=== PATIENT | female | born 1960 | race Caucasian/White ===

== ENCOUNTER 2017-03-16 11:02 | Observation (INO) | payer SELFPAY ==
[~2017-03-16] VITALS: Ht 170.2 cm; Wt 80.0 kg
[~2017-03-16 11:02] MED LIST: NORC7.5T PO; WALKER STANDARD
[2017-03-16 11:05] VITALS: BP 155/88; PULSE 79; RESP 15; TEMP 97.8; O2SAT 98
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
[2017-03-16] MEDS ORDERED: SODIUM CHLORIDE 0.9% FLUSH 10 ML FLUSH IVF PRN (13:30)
[2017-03-16 13:41] VITALS: RESP 18; O2SAT 99
[2017-03-16 13:54] VITALS: BP 153/69; PULSE 61; RESP 18; O2SAT 99
[2017-03-16 14:05] LABS: AUTOMATED NEUTROPHIL # 4.3 TH/MM3 (1.8-7.7); BASOPHIL % 0.5 % (0.0-2.0); EOSINOPHIL # 0.1 TH/MM3 (0-0.4); EOSINOPHIL % 1.1 % (0.0-4.0); HEMATOCRIT 38.5 % (35.0-46.0); HEMO FLAGS DIFF FINAL; LYMPH % 28.6 % (9.0-44.0); LYMPHOCYTE # 1.9 TH/MM3 (1.0-4.8); MEAN CELL VOLUME 78.8 FL (80.0-100.0); MEAN CORPUSCULAR HEMOGLOBIN 25.5 PG (27.0-34.0); MEAN CORPUSCULAR HGB CONC 32.3 % (32.0-36.0); MONO % 6.4 % (0.0-8.0); NEUT % 63.4 % (16.0-70.0); PLATELET COUNT 235 TH/MM3 (150-450); RED BLOOD COUNT 4.89 MIL/MM3 (4.00-5.30); RED CELL DISTRIBUTION WIDTH 14.2 % (11.6-17.2); WHITE BLOOD COUNT 6.7 TH/MM3 (4.0-11.0)
[2017-03-16 14:15] LABS: BICARBONATE 29.5 MEQ/L (21.0-32.0); POTASSIUM 3.7 MEQ/L (3.5-5.1)
--- NOTE | 2017-03-16 15:34 | RADRPT ---
EXAM DATE/TIME: 03/16/2017 15:09 [facility] COMPARISON: CT BRAIN W/O CONTRAST, May 05, 2016, 13:22. INDICATIONS : Cephalgia, aphasia, altered mental status. RADIATION DOSE: 33.51 CTDIvol (mGy) MEDICAL HISTORY : None SURGICAL HISTORY : Hysterectomy. ENCOUNTER: Initial ACUITY: >1 yr PAIN SCALE: 3/10 LOCATION: Bilateral frontal TECHNIQUE: Multiple contiguous axial images were obtained of the head. Using automated exposure control and adj ustment of the mA and/or kV according to patient size, radiation dose was kept as low as reasonably a chievable to obtain optimal diagnostic quality images. DICOM format image data is available electro nically for review and comparison. FINDINGS: There is no evidence for intracranial hemorrhage, mass effect, mass lesions, edema, or extra-axial fl uid collections. The visualized bony structures appear intact. The ventricles are normal size for t he patient's age. There are no signs of acute infarction for technique. CONCLUSION: Unremarkable study. Nidia Horton MD on March 16, 2017 at 15:31 Board Certified Radiologist. This report was verified electronically.
[2017-03-16] MEDS ORDERED: NALOXONE HCL 0.4 MG/ML AMP IV PRN (16:15)
[2017-03-16] MEDS ORDERED: SODIUM CHLORIDE 0.9% FLUSH 10 ML FLUSH IV FLUSH PRN (16:15)
[2017-03-16] MEDS ORDERED: HYDROmorphone HCL PF 1 MG/ML VIAL IV PUSH ONE (16:30)
[2017-03-16 16:51] VITALS: BP 127/60; PULSE 64; RESP 18; O2SAT 96
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
[2017-03-16] MEDS ORDERED: HYDROmorphone HCL 2 MG TAB PO PRN (17:30)
[2017-03-16] MEDS ORDERED: traMADol HCL 50 MG TAB PO PRN (17:30)
[2017-03-16] MEDS ORDERED: ONDANSETRON HCL 4 MG/2 ML VIAL IVP PRN (17:30)
[2017-03-16] MEDS: SODIUM CHLORIDE 0.9% FLUSH 10 ML FLUSH IV FLUSH SCH (21:00)
[2017-03-16 21:14] VITALS: BP 137/73; PULSE 72; RESP 18; TEMP 98.7; O2SAT 97
[2017-03-17 03:18] VITALS: BP_SYST 135; BP_SYST 152; BP_DIAS 68; BP_DIAS 70; PULSE 72; RESP 18; TEMP 98.6; O2SAT 98
[2017-03-17 06:27] LABS: AUTOMATED NEUTROPHIL # 3.9 TH/MM3 (1.8-7.7); BASOPHIL % 0.4 % (0.0-2.0); EOSINOPHIL # 0.1 TH/MM3 (0-0.4); EOSINOPHIL % 1.7 % (0.0-4.0); HEMATOCRIT 37.2 % (35.0-46.0); HEMO FLAGS DIFF FINAL; LYMPH % 35.5 % (9.0-44.0); LYMPHOCYTE # 2.6 TH/MM3 (1.0-4.8); MEAN CELL VOLUME 79.3 FL (80.0-100.0); MEAN CORPUSCULAR HEMOGLOBIN 25.1 PG (27.0-34.0); MEAN CORPUSCULAR HGB CONC 31.6 % (32.0-36.0); MONO % 7.8 % (0.0-8.0); NEUT % 54.6 % (16.0-70.0); PLATELET COUNT 257 TH/MM3 (150-450); RED BLOOD COUNT 4.69 MIL/MM3 (4.00-5.30); RED CELL DISTRIBUTION WIDTH 14.6 % (11.6-17.2); WHITE BLOOD COUNT 7.2 TH/MM3 (4.0-11.0)
[2017-03-17 06:53] LABS: ALT (GPT) 16 U/L (10-53); ANION GAP 9 MEQ/L (5-15); AST (GOT) 13 U/L (15-37); BICARBONATE 31.1 MEQ/L (21.0-32.0); BLOOD UREA NITROGEN 18 MG/DL (7-18); CHLORIDE 102 MEQ/L (98-107); GLOMERULAR FILTRATION RATE 75 ML/MIN (>89); POTASSIUM 3.7 MEQ/L (3.5-5.1); SODIUM (NA) 142 MEQ/L (136-145)
[2017-03-17 06:54] LABS: ALKALINE PHOSPHATASE 69 U/L (45-117); TOTAL BILIRUBIN ADULT 0.4 MG/DL (0.2-1.0)
[2017-03-17 08:51] VITALS: BP 135/79; PULSE 64; RESP 16; TEMP 98.2; O2SAT 98
[2017-03-17] MEDS ORDERED: LORazepam 2 MG/ML VIAL IV PUSH ONE (10:15)
[2017-03-17] MEDS: SODIUM CHLORIDE 0.9% FLUSH 10 ML FLUSH IV FLUSH SCH (10:40)
--- NOTE | 2017-03-17 12:31 | RADRPT ---
EXAM DATE/TIME: 03/17/2017 11:28 [facility] COMPARISON: No previous studies available for comparison. INDICATIONS : Cephalgia. CONTRAST: 16 cc Omniscan (gadodiamide) IV MEDICAL HISTORY : None. SURGICAL HISTORY : Hysterectomy. ENCOUNTER: Initial ACUITY: 2 day PAIN SCORE: 6/10 LOCATION: head TECHNIQUE: Multiplanar, multisequence MRI of the brain was performed both prior to and following the administrat ion of paramagnetic contrast. FINDINGS: CEREBRUM: The ventricles are normal for age. No evidence of midline shift, mass lesion, hemorrhage or acute in farction. No extraaxial fluid collections are seen. The pituitary gland and suprasellar cistern are normal in configuration. WHITE MATTER: No significant signal abnormalities are seen in the white matter. POSTERIOR FOSSA: The cerebellum and brainstem are intact. The 4th ventricle is midline. The cerebellopontine angle is unremarkable. The cerebellar tonsils are normal in position. DIFFUSION IMAGING: No focal areas of restricted diffusion are seen. No evidence of acute infarction. EXTRACRANIAL: The visualized portions of the orbits and paranasal sinuses are unremarkable. POST-CONTRAST: No abnormal areas of parenchymal or dural enhancement. No evidence of blood-brain barrier breakdown. CONCLUSION: Negative exam. Charles Layne MD on March 17, 2017 at 12:28 Board Certified Radiologist. This report was verified electronically.
[2017-03-17 13:22] VITALS: BP 119/61; PULSE 70; RESP 16; TEMP 98.2; O2SAT 100
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
[2017-03-17] MEDS ORDERED: ULTR50TA5 PO (13:30)
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
[2017-03-17] MEDS ORDERED: GADODIAMIDE PF 287 MG/ML 20 ML VIAL (for RAD MRI) IV PUSH ONE (15:54)
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
== END 2017-03-17 15:55 | disposition home or self-care (01) ==
LOC: NEPD 11:02 → NEDA 16:13 → NEPHCDU 18:32
PROVIDERS: ADMIT Family Medicine; ATTEND Family Medicine
DX: R47.01 Aphasia (principal); G50.0 Trigeminal neuralgia; R51 Headache; G47.00 Insomnia, unspecified; R41.3 Other amnesia; R42 Dizziness and giddiness; R41.82 Altered mental status, unspecified; S06.0X9S Concussion with loss of consciousness of unspecified duration, sequela; J45.909 Unspecified asthma, uncomplicated; F32.9 Major depressive disorder, single episode, unspecified; F43.20 Adjustment disorder, unspecified; H91.92 Unspecified hearing loss, left ear; Z87.820 Personal history of traumatic brain injury; Z98.51 Tubal ligation status; V89.2XXS Person injured in unspecified motor-vehicle accident, traffic, sequela
CPT/HCPCS: 70450; 70553; 80048; 80053; 85025; 92523; 96374; 96375; 99285; A9579; G0378; G9162; G9163; G9164; J1170; J2060

== ENCOUNTER 2017-09-13 17:50 | Emergency (ER) | payer SELFPAY ==
[~2017-09-13] VITALS: Ht 170.2 cm; Wt 85.7 kg
[~2017-09-13 17:50] MED LIST changes: -NORC7.5T PO; +TRAM50 PO; -WALKER STANDARD
[2017-09-13 17:52] VITALS: BP 134/63; PULSE 67; RESP 16; TEMP 98.7; O2SAT 96
[2017-09-13 18:40] VITALS: O2SAT 98
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
[2017-09-13 19:06] LABS: AUTOMATED NEUTROPHIL # 5.2 TH/MM3 (1.8-7.7); BASOPHIL # 0.1 TH/MM3 (0-0.2); BASOPHIL % 1.3 % (0.0-2.0); EOSINOPHIL # 0.1 TH/MM3 (0-0.4); EOSINOPHIL % 1.8 % (0.0-4.0); HEMOGLOBIN 12.4 GM/DL (11.6-15.3); LYMPH % 23.8 % (9.0-44.0); LYMPHOCYTE # 1.9 TH/MM3 (1.0-4.8); MEAN CELL VOLUME 77.2 FL (80.0-100.0); MEAN CORPUSCULAR HGB CONC 33.7 % (32.0-36.0); MEAN PLATELET VOLUME 10.1 FL (7.0-11.0); MONOCYTE # 0.5 TH/MM3 (0-0.9); NEUT % 67.1 % (16.0-70.0); PLATELET COUNT 249 TH/MM3 (150-450); RED BLOOD COUNT 4.79 MIL/MM3 (4.00-5.30); RED CELL DISTRIBUTION WIDTH 12.9 % (11.6-17.2); WHITE BLOOD COUNT 7.8 TH/MM3 (4.0-11.0)
[2017-09-13 19:14] LABS: CHLORIDE 103 MEQ/L (98-107); SODIUM (NA) 136 MEQ/L (136-145)
[2017-09-13 19:17] LABS: ALBUMIN 4.2 GM/DL (3.4-5.0); CALCIUM 8.8 MG/DL (8.5-10.1); GLUCOSE,RANDOM 86 MG/DL (74-106)
[2017-09-13 19:18] LABS: BLOOD UREA NITROGEN 8 MG/DL (7-18)
[2017-09-13 19:19] LABS: INTERNATIONAL NORMALIZED RATIO 1.1 RATIO; PROTHROMBIN TIME - PATIENT 10.9 SEC (9.8-11.6)
[2017-09-13 19:20] LABS: ALT (GPT) 16 U/L (10-53)
[2017-09-13 19:21] LABS: AST (GOT) 17 U/L (15-37); CREATININE 0.88 MG/DL (0.50-1.00); GLOMERULAR FILTRATION RATE 66 ML/MIN (>89)
[2017-09-13 19:22] LABS: TOTAL BILIRUBIN ADULT 0.5 MG/DL (0.2-1.0); TOTAL PROTEIN 7.6 GM/DL (6.4-8.2)
[2017-09-13 19:23] LABS: ALKALINE PHOSPHATASE 81 U/L (45-117)
[2017-09-13 19:27] VITALS: BP 115/80; PULSE 79; RESP 18; O2SAT 97
--- NOTE | 2017-09-13 20:07 | RADRPT ---
EXAM DATE/TIME: 09/13/2017 19:34 [place] COMPARISON: CT BRAIN W/O CONTRAST, March 16, 2017, 15:09. INDICATIONS : Cephalgia. Memory loss. RADIATION DOSE: 64.89 CTDIvol (mGy) MEDICAL HISTORY : None SURGICAL HISTORY : None. ENCOUNTER: Initial ACUITY: >1 yr PAIN SCALE: 10/10 LOCATION: cranial TECHNIQUE: Multiple contiguous axial images were obtained of the head. Using automated exposure control and adj ustment of the mA and/or kV according to patient size, radiation dose was kept as low as reasonably a chievable to obtain optimal diagnostic quality images. DICOM format image data is available electro nically for review and comparison. FINDINGS: CEREBRUM: The ventricles are normal for age. No evidence of midline shift, mass lesion, hemorrhage or acute in farction. No extra-axial fluid collections are seen. POSTERIOR FOSSA: The cerebellum and brainstem are intact. The 4th ventricle is midline. The cerebellopontine angle i s unremarkable. EXTRACRANIAL: The visualized portion of the orbits is intact. SKULL: The calvaria is intact. No evidence of skull fracture. CONCLUSION: 1. No acute intracranial abnormality identified. Stable compared to prior dated 03/16/17. Hieu Morley MD on September 13, 2017 at 20:05 Board Certified Radiologist. This report was verified electronically.
[2017-09-13 21:27] VITALS: BP 123/78; PULSE 77; RESP 18; TEMP 98.2; O2SAT 95
--- NOTE | 2017-09-13 21:31 | PD ---
Physical Exam Date Seen by Provider: Sep 13, 2017 Time Seen by Provider: 19:30 Narrative accepted in transfer of care from Dr Rivas Data Data Last Documented VS Vital Signs Date Time Temp Pulse Resp B/P (MAP) Pulse Ox O2 Delivery O2 Flow Rate FiO2 09/13/17 22:17 70 16 130/80 (97) 97 09/13/17 21:27 98.2 09/13/17 19:27 Room Air Orders Orders Complete Blood Count With Diff (09/13/17 18:45) Comprehensive Metabolic Panel (09/13/17 18:45) Prothrombin Time / Inr (Pt) (09/13/17 18:45) Act Partial Throm Time (Ptt) (09/13/17 18:45) Thyroid Stimulating Hormone (09/13/17 18:45) Ct Brain W/O Iv Contrast(Rout) (09/13/17 18:45) Iv Access Insert/Monitor (09/13/17 18:45) Ecg Monitoring (09/13/17 18:45) Oximetry (09/13/17 18:45) Ed Discharge Order (09/13/17 22:03) Mandatory Outpatient Referral (09/13/17 22:25) Labs Laboratory Tests Test 09/13/17 18:45 White Blood Count 7.8 TH/MM3 Red Blood Count 4.79 MIL/MM3 Hemoglobin 12.4 GM/DL Hematocrit 37.0 % Mean Corpuscular Volume 77.2 FL Mean Corpuscular Hemoglobin 26.0 PG Mean Corpuscular Hemoglobin Concent 33.7 % Red Cell Distribution Width 12.9 % Platelet Count 249 TH/MM3 Mean Platelet Volume 10.1 FL Neutrophils (%) (Auto) 67.1 % Lymphocytes (%) (Auto) 23.8 % Monocytes (%) (Auto) 6.0 % Eosinophils (%) (Auto) 1.8 % Basophils (%) (Auto) 1.3 % Neutrophils # (Auto) 5.2 TH/MM3 Lymphocytes # (Auto) 1.9 TH/MM3 Monocytes # (Auto) 0.5 TH/MM3 Eosinophils # (Auto) 0.1 TH/MM3 Basophils # (Auto) 0.1 TH/MM3 CBC Comment DIFF FINAL Differential Comment Prothrombin Time 10.9 SEC Prothromb Time International Ratio 1.1 RATIO Activated Partial Thromboplast Time 27.5 SEC Blood Urea Nitrogen 8 MG/DL Creatinine 0.88 MG/DL Random Glucose 86 MG/DL Total Protein 7.6 GM/DL Albumin 4.2 GM/DL Calcium Level 8.8 MG/DL Alkaline Phosphatase 81 U/L Aspartate Amino Transf (AST/SGOT) 17 U/L Alanine Aminotransferase (ALT/SGPT) 16 U/L Total Bilirubin 0.5 MG/DL Sodium Level 136 MEQ/L Potassium Level 3.4 MEQ/L Chloride Level 103 MEQ/L Carbon Dioxide Level 25.0 MEQ/L Anion Gap 8 MEQ/L Estimat Glomerular Filtration Rate 66 ML/MIN Thyroid Stimulating Hormone 3rd Gen 0.868 uIU/ML [facility] Medical Record Reviewed: Yes Supervised Visit with JOSE: No Interpretation(s) Last Impressions Head CT 09/13/17 1845 Signed Impressions: Service Date/Time: Wednesday, September 13, 2017 19:34 - CONCLUSION: 1. No acute intracranial abnormality identified. Stable compared to prior dated 03/16/17. Hieu Morley MD CBC & BMP Diagram 09/13/17 18:45 Total Protein 7.6, Albumin 4.2, Calcium Level 8.8, Alkaline Phosphatase 81, Aspartate Amino Transf (AST/SGOT) 17, Alanine Aminotransferase (ALT/SGPT) 16, Total Bilirubin 0.5 Vital Signs Date Time Temp Pulse Resp B/P (MAP) Pulse Ox O2 Delivery O2 Flow Rate FiO2 09/13/17 21:27 98.2 77 18 123/78 (93) 95 09/13/17 19:27 79 18 115/80 (92) 97 Room Air 09/13/17 18:40 98 09/13/17 18:30 18 09/13/17 17:52 98.7 67 16 134/63 (86) 96 Differential Diagnosis accepted in transfer of care from Dr Rivas; please refer to his dictation Narrative Course accepted in transfer of care from Dr Rivas; for follow up pending labs, ct and disposition Lab values and imaging study found to be grossly in normal range; patient given results of tests and is stable for outpatient management with planned close follow-up with her managing provider Diagnosis Primary Impression: Post-concussion headache Referrals: Primary Care Physician call for appointment Patient Instructions: General Instructions Additional Instruction: Follow-up with your managing provider Return to the emergency department for any concerns or change in condition May take Zofran as prescribed as needed for nausea and/or vomiting May take ibuprofen/Advil/Motrin per package directions as needed for pain associated with headache or inflammation or fever 100.4F or greater; May take ibuprofen/motrin/advil 600 mg every 6-8 hours OR maximum ibuprofen 800 mg no more often than every 8 hours Med/Other Pt SpecificInfo: Prescription(s) given Scripts Ondansetron Odt (Zofran Odt) 4 Mg Tab 4 MG SL Q6HR Y for Nausea/Vomiting, #10 TAB 0 Refills Prov: Asiya Miramontes MD 09/13/17 Disposition: 01 DISCHARGE HOME Condition: Stable Asiya Miramontes MD Sep 13, 2017 21:31
[2017-09-13] MEDS ORDERED: ZOFR4TAB3 SL (22:06)
[2017-09-13 22:17] VITALS: BP 130/80
== END 2017-09-13 22:34 | disposition home or self-care (01) ==
LOC: PHED 17:50
DX: G44.309 Post-traumatic headache, unspecified, not intractable (principal); J45.909 Unspecified asthma, uncomplicated; F32.9 Major depressive disorder, single episode, unspecified; Z88.5 Allergy status to narcotic agent; Z88.2 Allergy status to sulfonamides; Z88.4 Allergy status to anesthetic agent; Z88.8 Allergy status to other drugs, medicaments and biological substances; Z91.048 Other nonmedicinal substance allergy status
CPT/HCPCS: 70450; 80053; 84443; 85025; 85610; 85730; 99284

== ENCOUNTER 2017-12-06 15:21 | Emergency (ER) | payer OTHER ==
[~2017-12-06 15:21] MED LIST changes: -TRAM50 PO; +ZOFR4TAB3 SL
[2017-12-06 15:27] VITALS: BP 108/68; PULSE 74; RESP 16; TEMP 98.6; O2SAT 96
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
== END 2017-12-06 16:09 | disposition home or self-care (01) ==
LOC: PHED 15:21
DX: G89.29 Other chronic pain (principal); J45.909 Unspecified asthma, uncomplicated; F41.9 Anxiety disorder, unspecified; F32.9 Major depressive disorder, single episode, unspecified; V03.00XA Pedestrian on foot injured in collision with car, pick-up truck or van in nontraffic accident, initial encounter; Y92.481 Parking lot as the place of occurrence of the external cause; Z88.2 Allergy status to sulfonamides; Z88.6 Allergy status to analgesic agent; Z88.5 Allergy status to narcotic agent
CPT/HCPCS: 99281